=== PATIENT | female | born 1945 | race African-American/Black ===

== ENCOUNTER → 2016-05-31 | Day surgery (SDC) | payer MEDICARE, OTHER ==
--- NOTE | 2016-05-30 13:35 | Pre-Procedure Note/Attestation ---
Pre-Procedure Note/Attestation Complete Prior to Procedure Planned Procedure: right Procedure Narrative: phaco with IOL Indications for Procedure Pre-Operative Diagnosis: cataract Attestation I attest that I discussed the nature of the procedure; its benefits; risks and complications; and alternatives (and the risks and benefits of such alternatives ), prior to the procedure, with the patient (or the patient's legal product support representative). I attest that, if there was a reasonable possibility of needing a blood transfusion, the patient (or the patient's legal product support representative) was given the [facility] standardized written summary, pursuant to the [place] Blood Safety Act ([place] Health and Safety Code # 1645, as amended). I attest that I re-evaluated the patient just prior to the surgery and that there has been no change in the patient's H&P, except as documented below: LA VALENZUELA May 30, 2016 13:35
--- NOTE | 2016-05-30 13:37 | Opthalmology H&P ---
Ophthalmology H&P H&P Chief Complaint: decreased vision in right eye HPI Vision Affects Ability to: read, focus/use eyes together, manage personal affairs HPI Narrative blurry vision Exam Visual Acuity: OD: 20/60 OS; 20/30 Tension: OD: 15 OS: 17 Eye Exam: normal OU: anterior chambers, corneas, external exam, levator function, marginal reflex distance, palpebral fissure-width, findings: fundus exam - OD: 0.5 OS: 0.5, lens - OD: cortical OS: IOL Assessment/Plan Diagnosis: (1) Cataract Treatment Plan: cataract extraction w/ lens implant Goals of Treatment: improvement of vision, enhance quality of life Attestation Attestation The risks and benefits of the surgery as well as alternative procedures were explained to the patient in detail. LA VALENZUELA May 30, 2016 13:37
[~2016-05-31] VITALS: Ht 167.6 cm; Wt 79.8 kg
[2016-05-31] VITALS (9 sets, daily range): BP systolic 143–171; BP diastolic 70–82
[~2016-05-31] MED LIST: AMLODIPINE BESY10 MG ORAL; ASPIR-LOW81 MG ORAL; ATENOLOL50 MG ORAL; Akten 3.5% 1ml Btl RIGHT EYE ONE; BSS 15ml BTL ONE; BSS 500ml btl ONE; CRESTOR40 MG ORAL; DIOVAN320 MG ORAL; Dexamethasone 4mg/ml vial ONE; EPINEPHrine 1mg/1ml Amp ONE; GARLIC1 EAC1 PO; HYDROCHLOROTHIA25 MG ORAL; Hydromorphone 0.5mg/0.5ml inj IVP PRN; Ketorolac 30mg Inj IV PRN; LEXAPRO10 MG ORAL; LOSARTAN POTAS100 MG ORAL; MELOXICAM15 MG PO; MONTELUKAST SOD10 MG ORAL; Maxitrol Opth Oint 3.5gm ONE; Midazolam 2mg/2ml Inj ONE; NIACOR500 MG PO; Norco 5mg/325mg tab ORAL PRN; OMEPRAZOLE20 M3 ORAL; POTASSIUM CHLO10 ME3 ORAL; PROAIR HFA8.5 GM INH; Povidone-Iodine 5% opth solution ONE; Pred Forte 1% Opth Susp 1ml ONE; SENSIPAR30 MG ORAL; SIMBRINZA 1%-0.28 ML BOTH EYES; SPIRIVA18 MCG INH; SYSTANE BALANCE10 M1 BOTH EYES; Sodium Hyaluronate 14 mg/ml 0.85ml ONE; TRAVATAN Z5 ML BOTH EYES; Tobramycin Op Soln 0.3% RIGHT EYE ONE; VENTOLIN HFA18 GM INH; VIT D PO; acetaZOLAMIDE 500mg Inj ONE; fentaNYL 100 mcg/2 mL IV PRN
[2016-05-31] MEDS: Cyclopentolate 1% Opth Sol RIGHT EYE SCH ×3 (07:44→08:01)
[2016-05-31] MEDS: Diclofenac Sod 0.1% Op Soln RIGHT EYE SCH ×3 (07:45→08:01)
[2016-05-31] MEDS: Phenylephrine 10% Opth Soln 5ml RIGHT EYE SCH ×3 (07:45→08:01)
[2016-05-31] MEDS: Tropicamide 1% Opth Soln RIGHT EYE SCH ×3 (07:45→08:01)
--- NOTE | 2016-05-31 10:21 | Anethesia Preoperative Eval ---
Anesthesia Pre-op PMH/ROS General Date of Evaluation: May 31, 2016 Time of Evaluation: 09:35 Anesthesiologist: Chris ASA Score: ASA 3 Mallampati Score Class I : Soft palate, uvula, fauces, pillars visible Class II: Soft palate, uvula, fauces visible Class III: Soft palate, base of uvula visible Class IV: Only hard plate visible Mallampati Classification: Class II Surgeon: Shital Diagnosis: Cataract Surgical Procedure: Cataact Family History: no anesthesia problems Allergies: Coded Allergies: SHELLFISH DERIVED (Verified Allergy, Severe, Rash, itching, 05/31/16) CODEINE (Verified Allergy, Mild, 03/31/14) PENICILLINS (Verified Allergy, Mild, 03/31/14) SULFA (SULFONAMIDE ANTIBIOTICS) (Verified Allergy, Unknown, 03/31/14) Uncoded Allergies: sulfa (Allergy, Mild, 03/31/14) Past Medical History Cardiovascular: Reports: CAD, HTN Pulmonary: Reports: COPD Gastrointestinal/Genitourinary: Reports: GERD Neurologic/Psychiatric: Denies: CVA, TIA, dementia, depression/anxiety, other Endocrine: Denies: DM, hypothyroidism, other, steroids HEENT: Reports: cataract (R) Musculoskeletal/Integumentary: Reports: DJD Anesthesia Pre-op Phys. Exam Physician Exam Last Vital Signs Date Time Temp Pulse Resp B/P Pulse Ox O2 Delivery O2 Flow Rate FiO2 05/31/16 08:00 98.1 73 18 147/70 98 Room Air Constitutional: NAD Cardiovascular: RRR Airway Exam Mallampati Score: Class II IRA REAL M.D. May 31, 2016 10:21
--- NOTE | 2016-05-31 10:23 | Immediate Post-Op Evaluation ---
Immediate Post-Op Evalulation Immediate Post-Op Evalulation Procedure: cataract Date of Evaluation: May 31, 2016 Time of Evaluation: 10:40 IV Fluids: 300 Blood Products: 0 Estimated Blood Loss: 0 Urinary Output: 0 Blood Pressure Systolic: 185 Blood Pressure Diastolic: 90 Pulse Rate: 20 Respiratory Rate: 0 O2 Sat by Pulse Oximetry: 96 Temperature (Fahrenheit): 98 Pain Score (1-10): 2 Nausea: No Vomiting: No Complications na Patient Status: awake Hydration Status: adequate Given Within 1 Hr of Incision: IRA Summers M.D. May 31, 2016 10:23
--- NOTE | 2016-05-31 10:25 | 48 Hour Post Anesthesia Eval ---
Post Anesthesia Evaluation Procedure: cataract Date of Evaluation: May 31, 2016 Time of Evaluation: 11:40 Blood Pressure Systolic: 180 0: 87 Pulse Rate: 80 Respiratory Rate: 20 Temperature (Fahrenheit): 98 O2 Sat by Pulse Oximetry: 97 Airway: patent Nausea: No Vomiting: No Pain Intensity: 2 Hydration Status: adequate Cardiopulmonary Status: stable Mental Status/LOC: patient returned to baseline Follow-up Care/Observations: na Post-Anesthesia Complications: na Follow-up care needed: N/A IRA REAL M.D. May 31, 2016 10:25
--- NOTE | 2016-06-03 08:57 | Brief Operative Note ---
Immediate Post Operative Note Operative Note Chief Complaint: blurry vision Pre-op Diagnosis: cataract, OS Procedure: phaco with IOL, OS Post-op Diagnosis: Pseudophakia, OS Post-op Diagnosis: same as pre-op Findings: consistent w/pre-op dx studies Surgeon: Shital Anesthesiologist: Chris Anesthesia: MAC Specimen: none Complications: none Condition: stable Estimated Blood Loss: none Drains: none Implant(s) used?: Yes LA VALENZUELA Jun 03, 2016 08:57
--- NOTE | 2016-06-03 09:41 | Operative Note - PDOC ---
Operative Note Operative Note Date of Operation/Procedure: May 31, 2016 Chief Complaint: blurry vision Pre-op Diagnosis: cataract, OS Procedure: phaco with IOL, OS Post-op Diagnosis: Pseudophakia, OS Post-op Diagnosis: same as pre-op Operative Findings: consistent w/pre-op dx studies Surgeon: Shital Anesthesiologist: Chris Anesthesia: MAC Specimen: none Complications: none Condition: stable Estimated Blood Loss: none Drains: none Implant(s) used?: Yes Indications for Procedure cataract Description of Procedure This patient has been complaining visually significant cataract in the affected eye with the best corrected visual acuity under moderate glare conditions worse. The patient complains of difficulties with glare in performing activities of daily living and wants to manage personal affairs with comfort and accuracy and see well enough to move with safety at home and outdoors. ~~~ The risks, benefits and alternatives of the procedure were discussed with the patient in the office prior to scheduling surgery. All questions from the patient were answered after the surgical procedure was explained in detail. The risks of the procedure as explained to the patient include, but are not limited to, pain, infection, bleeding, loss of vision, retinal detachment, need for further surgery, loss of lens nucleus, double vision, etc. Alternative procedures were discussed which include, to do nothing or seek a second opinion. Informed consent for this procedure was obtained from the patient. The patient was referred to a primary care physician for a cardiopulmonary clearance prior to surgery, after proper evaluation was done patient was properly scheduled for outpatient surgery. The patient was brought to the operating room where the anesthesiologist established I.V. lines and cardiac monitoring leads. Mild intravenous sedation was administered. The patient was then prepared with a 5% solution of povidone- iodine to the conjunctival fornix and lashes, and a 10% solution of povidone- iodine to the lids and periorbital skin. The patient was then draped in the usual sterile fashion. A lid speculum was then placed in the operative eye. A keratome blade was then used to create a biplanar incision into the anterior chamber. Viscoelastics was then instilled into the anterior chamber. A capsulorrhexis was then fashioned with an utrata forceps followed by a BSS and a cannula were then used to hydrodissect and hydro delineate the lens. Paracentesis incision was made at 3 o'clock with sharp blade. The phacoemulsification unit, after being properly adjusted and tested, was then used to emulsify the nucleus, then irrigation and aspiration of residual cortical material was done with I and A unit. Healon was then instilled into the anterior chamber. The corneal wound was then enlarged to the size of the optic with the daxa keratome blade. The intraocular lens was then inspected for right power and size and thought to be satisfactory. Then the lens was gently placed in the capsular bag. Positioning within the capsular bag was confirmed by direct visualization. Optic centration was accomplished with a Sinskey hook. Viscoelastics~ was removed from the anterior chamber using the irrigation and aspiration unit. The corneal wound was then tested for leaks and none were found. The lid speculum were then removed. Sponge and needle counts were correct. An eye patch and shield were placed over the operative eye. The patient was taken to the recovery room in stable condition. There were no complications. The patient tolerated the procedure well. The patient was then transferred to the ambulatory surgery unit in stable and satisfactory condition , was given detailed written instructions and asked to follow up~ in the office the next day. ~ ~ Dictated & Transcribed: [facility] Davy MCGUIRE JAMES Jun 03, 2016 09:41
--- NOTE | 2016-06-16 10:55 | Physician Query ---
PLEASE COMPLETE DOCUMENT BEFORE SIGNING Dear Dr. LA VALENZUELA Date: 06/16/2016 [employer] Gatherer/CDS Name: CHAITANYA ROSAS CCS Exercise your independent professional judgment when responding to the query. Questions asked do not imply a particular answer is desired or expected. We greatly appreciate your clarification on this issue. The H&P, Anesthesia note and consent have right, but the op report & post op note have left. CLINICAL DOCUMENTATION STATES: Date of Operation/Procedure: May 31, 2016 Chief Complaint: blurry vision Pre-op Diagnosis: cataract, OS Procedure: phaco with IOL, OS Post-op Diagnosis: Pseudophakia, OS Please respond to the following question: Is there a diagnosis specific to these symptoms or values? If so please state below. Please indicate the eye that procedure was performed on: Right Eye La Valenzuela M.D. Date & Time MTDD
== END | disposition home or self-care (01) ==
LOC: SUR 06:11
DX: H26.9 Unspecified cataract (principal); I10 Essential (primary) hypertension; I25.10 Atherosclerotic heart disease of native coronary artery without angina pectoris; K21.9 Gastro-esophageal reflux disease without esophagitis; M19.90 Unspecified osteoarthritis, unspecified site; I73.9 Peripheral vascular disease, unspecified; E03.9 Hypothyroidism, unspecified; J44.9 Chronic obstructive pulmonary disease, unspecified; J45.909 Unspecified asthma, uncomplicated; G47.33 Obstructive sleep apnea (adult) (pediatric); F17.210 Nicotine dependence, cigarettes, uncomplicated; Z88.5 Allergy status to narcotic agent; Z88.0 Allergy status to penicillin; Z88.2 Allergy status to sulfonamides; Z91.013 Allergy to seafood
CPT/HCPCS: 66984; J0171; J1100; J1120; J2250; J3370; V2632; 94003; 94150